=== PATIENT | female | born 1965 | race Caucasian/White ===

== ENCOUNTER 2022-08-30 14:52 | Outpatient (RCR) | payer BC, SELFPAY ==
--- NOTE | 2022-12-03 11:26 | ONC.NURNOTE ---
Addendum entered by Flower Cox RN 12/03/22 11:40: She would like the RX called in to [facility]. Original Note: Brittani called requesting her Tamoxifen refilled at [facility] pharmacy. [phone]. Brittani states she is out.
== END 2023-02-26 23:59 | disposition home or self-care (01) ==
LOC: CCIC 14:52
PROVIDERS: PCP Family Medicine; Visit Provider Nurse Practitioner Family
DX: C50.911 Malignant neoplasm of unspecified site of right female breast (principal); Z17.0 Estrogen receptor positive status [ER+]; Z79.810 Long term (current) use of selective estrogen receptor modulators (SERMs)
CPT/HCPCS: 99212; 99214

== ENCOUNTER 2023-08-12 15:08 | Outpatient (RCR) | payer BC, SELFPAY ==
--- NOTE | 2023-07-05 13:29 | ONC.NURNOTE ---
Call to patient to discuss Tamoxifen. We received a request for re-fill on her Tamoxifen. Patient informed that per her last office visit, she has completed 10 years of Tamoxifen in June 2023. See note below: Patient has two weeks remaining and will complete her current supply mid July. Patient scheduled for her 1 year follow up visit with Dr. Bar on 08/14. She continues to do well with the tamoxifen, with no evidence of cancer. She did discuss with the oncologist last year small additional benefit a switching to aromatase inhibitors for postmenopausal women for the remainder of her 10 years, however patient had elected to continue with the tamoxifen. Her 10 years will be in June of 2023. Patient has two weeks remaining and will complete her current supply. Patient scheduled for her 1 year follow up visit with Dr. Bar on 08/14.
== END 2024-02-08 23:59 | disposition home or self-care (01) ==
LOC: CCIC 15:08
PROVIDERS: PCP Family Medicine; Visit Provider Physician Assistant
DX: C50.911 Malignant neoplasm of unspecified site of right female breast (principal); Z17.0 Estrogen receptor positive status [ER+]; E11.42 Type 2 diabetes mellitus with diabetic polyneuropathy; N39.41 Urge incontinence
CPT/HCPCS: 99214; G0463